=== PATIENT | male | born 1935 | race Caucasian/White ===

== ENCOUNTER → 2017-07-31 | Emergency (ER) | payer OTHER ==
[~2017-07-31] VITALS: Ht 170.2 cm; Wt 74.8 kg
[~2017-07-31] MED LIST: ARICEPT10 MG; ASA81 MG; LASIX20 MG; MINOXIDIL10 MG; OSEL75CA PO; PREDNISOLONE5 MG; TRAMADOL HCL50 MG; TUSSI PRES-B L120 M1 PO
== END | disposition home or self-care (01) ==
LOC: ER 09:15
DX: J11.1 Influenza due to unidentified influenza virus with other respiratory manifestations (principal); B34.9 Viral infection, unspecified

== ENCOUNTER 2020-05-23 12:48 | Emergency (ER) | payer OTHER ==
[~2020-05-23] VITALS: Ht 167.6 cm; Wt 77.1 kg
[2020-05-23] MEDS ORDERED: SULFAZINE EC500 MG (13:38)
[2020-05-23] MEDS ORDERED: ADALAT CC90 MG (13:38)
[2020-05-23] MEDS ORDERED: HYDRALAZINE HCL25 MG (13:39)
[2020-05-23] MEDS ORDERED: CHLORTHALIDONE25 MG (13:39)
[2020-05-23] MEDS ORDERED: RAYOS5 MG (13:39)
[2020-05-23] MEDS ORDERED: CELEBREX200MG (13:40)
[2020-05-23] MEDS ORDERED: AVAPRO300 MG (13:40)
[2020-05-23] MEDS ORDERED: ARICEPT10 MG (13:41)
== END 2020-05-23 16:01 | disposition home or self-care (01) ==
LOC: ER 12:48
DX: S00.83XA Contusion of other part of head, initial encounter (principal); R42 Dizziness and giddiness; R47.81 Slurred speech; W18.39XA Other fall on same level, initial encounter; Y93.89 Activity, other specified; Y92.018 Other place in single-family (private) house as the place of occurrence of the external cause; Y99.8 Other external cause status; Z03.818 Encounter for observation for suspected exposure to other biological agents ruled out